=== PATIENT | female | born 1985 | race Caucasian/White ===

== ENCOUNTER 2023-04-17 20:55 | Emergency (ER) | payer MEDICAID, SELFPAY ==
--- NOTE | 2023-04-17 | ECG_ITS ---
Test Reason : CP Blood Pressure : / mmHG Vent. Rate : 089 BPM Atrial Rate : 089 BPM P-R Int : 150 ms QRS Dur : 078 ms QT Int : 326 ms P-R-T Axes : 039 012 020 degrees QTc Int : 396 ms Normal sinus rhythm Normal ECG No previous ECGs available Referred By: Generic ED Physician Electronically Signed By:EPIFANIO MALLORY MD
[2023-04-17 20:56] VITALS: BP 134/85; BP 159/92; PULSE 90; PULSE 97; RESP 22; TEMP 36.7; O2SAT 100; O2SAT 98; BMI 36.7
[2023-04-17 21:14] VITALS: PULSE 98
--- NOTE | 2023-04-17 21:24 | ED_ITS ---
HPI - Chest Pain General Chief Complaint: Chest Pain Stated Complaint: CHEST PAIN, NEW HAND NUMBNESS, RAPID HEART RATE Time Seen by Provider: 04/17/23 21:11 Source: patient, family (Son) and solder technician ( Greek) Mode of arrival: ambulatory Limitations: no limitations History of Present Illness HPI narrative: 37-year-old Greek speaking female came in for evaluation of multiple complaints. For the past 4 months been having intermittent palpitation feeling palpitation is associated with diaphoresis and hear her heart beats very loudly in her ears, decline CP or SOB. Patient had a history of thyroid issue her PCP discontinue her thyroid hormones. Patient's notice that her symptoms is becoming more frequent over the past 4 months especially after she lost her mom back home in [place]. Related Data Previous Rx's Medication Instructions Recorded levothyroxine 25 mcg capsule 25 mcg PO DAILY #14 caps 04/17/23 Allergies Allergy/AdvReac Type Severity Reaction Status Date / Time No Known Allergies Allergy Unverified 02/28/20 19:10 [No Known Allergies*] Review of Systems 2 Review of Systems: All other systems are reviewed and are negative Constitutional: Reports as per HPI and Reports no additional constitutional complaints Eyes: Reports as per HPI and Reports no additional eye complaints Reports system reviewed and no additional complaints, except as documented Cardiovascular: Reports as per HPI and Reports no additional cardiovascular complaints Respiratory: Reports as per HPI and Reports no additional respiratory complaints Gastrointestinal: Reports as per HPI and Reports no additional gastrointestinal complaints Genitourinary: Reports no additional female genitourinary complaints Musculoskeletal: Reports no additional musculoskeletal complaints Skin/Breast: Reports system reviewed and no additional complaints, except as docu Psychiatric: Reports no additional psychiatric complaints Endocrine: Reports no additional endocrine complaints Hematologic/Lymphatic: Reports no additional hematologic/lymphatic complaints Allergic/Immunologic: Reports no additional allergic/immunologic complaints Reports system reviewed and no additional complaints, except as documented and Reports Abnormal speech present [facility] Social History Social History Smoked in Last 30 Days: No Use of substances other than those prescribed or required for medical reasons: No Advance Directives: No Advance Directives Information Provided: No Physical Exam 2 Vital Signs: Vital Signs: Last Vital Signs Temp 98.0 F 04/17/23 20:56 Pulse 90 04/17/23 20:56 Resp 22 H 04/17/23 20:56 BP 134/85 04/17/23 20:56 Pulse Ox 98 04/17/23 20:56 O2 Del Method Room Air 04/17/23 20:56 BMI result Body Mass Index 36.7 Vital signs have been reviewed and appear to be correct. Blood pressure elevated. Heart rate normal. Respiratory rate normal. Temperature normal. Oxygen saturation normal. Appearance: Alert. Oriented X3. No acute distress. Head: Normal external exam. Normocephalic. Atraumatic. No Madrigal signs noted. No raccoon eyes noted Eyes: PERRLA. EOMI. Conjunctiva and sclera normal. Eyelids normal. ENT: TM's Normal. Pharynx normal. Uvula midline. Moist mucous membranes. No trismus noted. No drooling noted. No muffled voice noted. Neck: Normal inspection. Neck supple. FROM. No adenopathy. Thyroid Normal. No meningeal signs. No neck mass noted. CVS: Normal heart rate and rhythm. Heart sound normal. No murmurs noted. Pulses normal throughout. Respiratory: No respiratory distress. Painless inspiration. Breath sounds normal. No wheezes/rales/rhonchi noted. Chest nontender. No accessory muscle usage noted or decreased air movement noted. Abdomen: Soft and nontender. Bowel sounds normal in all 4 quadrants. No distention noted. No organomegaly noted. No visible injury noted. Back: No CVA tenderness. Full range of motion noted. Skin: Skin warm and dry. Normal skin color. Normal skin turgor. No rashes/lesions/lacerations noted. Extremities: No lower extremity edema. Extremities exhibit normal range of motion. Extremities nontender. Neuro: Oriented X 3. Cranial nerve exam: II-XII are grossly intact No motor deficit. No sensory deficit. Reflexes normal. Course Reevaluation(s) Reevaluation #1: 37-year-old female came in for intermittent palpitation for the past 4 months especially after lost her mother back home, patient was taking of her thyroid medication by her PCP today found to have very high TSH patient was instructed to resume back her levothyroxine and follow up with her PCP for further evaluation. Time: 22:30 Medical Decision Making Differential Diagnosis Differential Diagnoses: The differential diagnosis associated with the presentation includes ( ACS, dysrhythmia, pulmonary embolism, electrolyte abnormality, severe anemia, hypothyroidism.) Admission/Observation Consideration of admission/observation: Escalation of care including admission/observation considered Lab Data MDM Lab Attestation statement: I reviewed the patient's lab results. 04/17/23 21:23 04/17/23 21:23 Labs: Lab Results 04/17/23 Range/Units 21:23 WBC 7.9 (4.8-10.8) X10*3/uL RBC 5.16 (4.20-5.50) X10*6/uL Hgb 12.1 (12.0-16.0) g/dl Hct 37.8 (37.0-47.0) % MCV 73.3 L (80.0-98.0) fL MCH 23.4 L (27.0-33.0) pg MCHC 32.0 (31.0-35.0) g/dl RDW 16.0 (11.0-16.0) % Plt Count 281 (160-400) X10*3/uL MPV 9.4 (9.4-12.3) fL Immature Gran % (Auto) 0.5 H (0.0-0.4) % Neut % (Auto) 48.2 (45-73) % Lymph % (Auto) 41.2 H (20-40) % [place] % (Auto) 8.6 (2-11) % Eos % (Auto) 1.0 (0-4) % Baso % (Auto) 0.5 (0-2) % Lymph # (Auto) 3.3 (1.2-4.9) X10*3/uL [place] # (Auto) 0.7 (0.1-1.2) X10*3/uL Eos # (Auto) 0.1 (0.0-0.4) X10*3/uL Baso # (Auto) 0.0 (0.0-0.2) X10*3/uL Abs Immat Gran (auto) 0.04 H (0.00-0.03) X10*3/uL Absolute Neuts (auto) 3.8 (2.0-8.3) x10*3/uL Absolute Nucleated RBC 0.000 (0.0-0.012) X10*3/uL Nucleated RBC % (auto) 0.0 (0.0-0.2) /100WBC D-Dimer High Sensitivty < 150 NG/ML Sodium 139 (135-145) mmol/L Potassium 3.5 (3.3-5.1) mmol/L Chloride 103 (96-108) mmol/L Carbon Dioxide 25 (22-29) mmol/L Anion Gap 15 (12-20) BUN 15 (9-16) mg/dL Creatinine 1.19 (0.5-1.4) mg/dL Estim Creat Clear Calc 71.2 Estimated GFR 51 Random Glucose 108 (60-115) mg/dL Calcium 9.9 (8.4-10.2) mg/dL Troponin I High Sens < 2.7 (<3.5-17.0) ng/L TSH > 100.00 H (0.32-4.0) uIU/mL Independent Interpretation I performed an independent interpretation of an: EKG ( Normal sinus rhythm at 89 beats per minutes, normal axis deviation, normal intervals, nonspecific ST changes, no previous EKG to compare.) Discharge Plan Discharge Clinical Impression: Palpitation, Hypothyroidism Patient Disposition: Home, Self-Care Instructions: Hypothyroidism (ED) Additional Instructions: follow-up with your PCP as scheduled in 1 week. Prescriptions: New levothyroxine 25 mcg capsule 25 mcg PO DAILY Qty: 14 0RF
[2023-04-17 21:31] LABS: MANUAL DIFF FLAG NO
[2023-04-17 21:33] LABS: Basophils Percent Auto 0.5 % (0-2); Eosinophils Absolute Auto 0.1 X10*3/uL (0.0-0.4); Hematocrit 37.8 % (37.0-47.0); Hemoglobin 12.1 g/dl (12.0-16.0); Imm Gran Abs Auto 0.04 X10*3/uL (0.00-0.03); Imm Gran Pct Auto 0.5 % (0.0-0.4); Lymphocytes Absolute Auto 3.3 X10*3/uL (1.2-4.9); Lymphocytes Percent Auto 41.2 % (20-40); Mean Corpuscular Hemoglobin 23.4 pg (27.0-33.0); Mean Corpuscular Volume 73.3 fL (80.0-98.0); Mean Platelet Volume 9.4 fL (9.4-12.3); Monocytes Absolute Auto 0.7 X10*3/uL (0.1-1.2); Monocytes Percent Auto 8.6 % (2-11); Neutrophils Absolute Auto 3.8 x10*3/uL (2.0-8.3); Neutrophils Percent Auto 48.2 % (45-73); Platelet Count 281 X10*3/uL (160-400); Red Blood Count 5.16 X10*6/uL (4.20-5.50); White Blood Count 7.9 X10*3/uL (4.8-10.8)
[2023-04-17 21:42] LABS: D Dimer High Sensitivity < 150 NG/ML
[2023-04-17 21:49] LABS: Anion Gap 15 (12-20); Blood Urea Nitrogen 15 mg/dL (9-16); Calcium 9.9 mg/dL (8.4-10.2); Carbon Dioxide 25 mmol/L (22-29); Chloride 103 mmol/L (96-108); Creatinine Clr Calc Pharmacy 71.2; Estimated Glomerular Filt Rate 51; Glucose Random 108 mg/dL (60-115); Potassium 3.5 mmol/L (3.3-5.1); Sodium 139 mmol/L (135-145)
[2023-04-17 22:04] LABS: Troponin-I High Sensitivity < 2.7 ng/L (<3.5-17.0)
[2023-04-17 22:13] LABS: Thyroid Stimulating Hormone > 100.00 uIU/mL (0.32-4.0)
[2023-04-17 23:05] VITALS: BP 146/89; PULSE 84; RESP 16; TEMP 36.7; O2SAT 99
== END 2023-04-17 23:08 | disposition home or self-care (01) ==
PROVIDERS: Emergency Provider Emergency Medicine
DX: R00.2 Palpitations (principal); E03.9 Hypothyroidism, unspecified; R61 Generalized hyperhidrosis
CPT/HCPCS: 36415; 80048; 84443; 84484; 85025; 85379; 93005; 99284; 99285